=== PATIENT | female | born 2000 | race Caucasian/White ===

== ENCOUNTER 2021-02-25 00:30 | Emergency (ER) | payer BC, OTHER ==
--- OUTSIDE RECORDS SUMMARY | 2021-02-25 01:40 | XMS REPORT | Clinical Summary ---
Author Author [facility] Organization [facility] Address Unknown Phone Unavailable Care Team Providers Care Post Closer Name Role Phone Vickie Bowles MD PCP Allergies No known active allergies Medications End Date Status Medication Sig Dispensed Refills Start Date Active sertraline (ZOLOFT) 100 0 01/23/201 MG tablet 8 Active SPRINTEC, 28, 0.25-35 0 mg-mcg tablet 8 Active Problems Not on file Encounters Not on filefrom Last 3 Months Immunizations Not on file Social History Date Tobacco Use Types Packs/Day Years Used Never Smoker Smokeless Tobacco: Never Used Sex Assigned at Date Recorded Not on file Last Filed Vital Signs Reading Time Taken Comments Vital Sign 100/69 02/22/2018 3:08 PM TAX EXAMINER Blood Pressure 118 02/22/2018 3:08 PM TAX EXAMINER Pulse 39.1 C (102.3 F) 02/22/2018 3:08 PM TAX EXAMINER Temperature 16 02/22/2018 3:08 PM TAX EXAMINER Respiratory Rate 99% 02/22/2018 3:08 PM TAX EXAMINER Oxygen Saturation - - Inhaled Oxygen Concentration 63.5 kg (140 lb) 02/22/2018 3:08 PM TAX EXAMINER Weight 175.3 cm (5' 9") 02/22/2018 3:08 PM TAX EXAMINER Height 20.67 02/22/2018 3:08 PM TAX EXAMINER Body Mass Index 47.99 % 02/22/2018 3:08 PM TAX EXAMINER Body Mass Index Percentile Growth Chart: CDC (Girls, 2-20 Years) Plan of Treatment Not on file Goals Not on file Implants Not on file Procedures Not on filefrom Last 3 Months Results Not on filefrom Last 3 Months Additional Health Concerns Not on file Insurance Type Payer Benefit Subscriber ID Effective Phone Address Plan / Dates Group BCBS AGUSTIN BCBS [id number] 2017-P [facility] [phone] Care Teams Start Date End Date Post Closer Relationship Specialty 02/22/18 Vickie Bowles MD PCP - General Pediatrics [address] [place] [id number]
--- OUTSIDE RECORDS SUMMARY | 2021-02-25 01:40 | XMS REPORT | Clinical Summary ---
Author Author [facility] Organization [facility] Address Unknown Phone Unavailable Care Team Providers Care Mock Up Assembler Name Role Phone Arely Gage MD PCP Source Comments Some departments are not documenting in the electronic medical record. If you d o not see the information that you expected, contact Release of Information in [facility] Information Management department at [phone] for further assistan ce in locating additional records.[facility] Allergies No known active allergies Medications End Date Status Medication Sig Dispensed Refills Start Date Active IBUPROFEN PO Take by 0 mouth. Active levonorgestrel/ethinyl Take 1 tablet 0 estradiol (ROSEY-28, by mouth NORDETTE-28) 0.15 mg/30 daily. mcg tablet Active sertraline (ZOLOFT) 50 mg Take 50 mg by 0 tablet mouth daily. Active Problems Problem Noted Date Rupture of anterior cruciate ligament of left knee 1 Complex tear of medial meniscus of left knee as curre nt injury 01/12/2017 Resolved Problems Problem Noted Date Resolved Date Left knee pain 12/29/2016 01/12/2017 Social History Date Tobacco Use Types Packs/Day Years Used Never Smoker Smokeless Tobacco: Never Used Comments Alcohol Use Standard Drinks/Week No 0 (1 standard drink = 0.6 o z pure alcohol) Sex Assigned at Date Recorded Not on file Growth Chart Information Age Height Weight Tbsysp-[id number] BMI Head Circum Head Circum Date ength Percentile Percentile Percentile 17 years 172.7 cm (5' 66.7 kg (147 68.84 %* 09/28/2017 8") lb) 17 years 172.7 cm (5' 68 kg (150 73.85 %* 06/16/2017 8") lb) 17 years 172.7 cm (5' 70.8 kg (156 80.20 %* 05/18/2017 8") lb) 17 years 172.7 cm (5' 70.8 kg (156 80.37 %* 04/28/2017 8") lb) 16 years 175.3 cm (5' 69.9 kg (154 74.49 %* 03/02/2017 9") lb) 16 years 175.3 cm (5' 70.2 kg (154 75.68 %* 02/02/2017 9") lb 12.8 oz) 16 years 175.3 cm (5' 70.8 kg (156 77.15 %* 01/12/2017 9") lb) 16 years 175.3 cm (5' 72.6 kg (160 80.94 %* 12/26/2016 9") lb) 16 years 172.7 cm (5' 70.8 kg (156 81.55 %* 12/13/2016 8") lb) * [facility] (Girls, 2-20 Years) Last Filed Vital Signs Reading Time Taken Comments Vital Sign 116/61 09/28/2017 1:30 PM CDT Blood Pressure 66 09/28/2017 1:30 PM CDT Pulse - - Temperature 16 09/28/2017 1:30 PM CDT Respiratory Rate 96% 09/28/2017 1:30 PM CDT Oxygen Saturation - - Inhaled Oxygen Concentration 66.7 kg (147 lb) 09/28/2017 1:30 PM CDT Weight 172.7 cm (5' 8") 09/28/2017 1:30 PM CDT Height 22.35 09/28/2017 1:30 PM CDT Body Mass Index 68.84 % 09/28/2017 1:30 PM CDT Body Mass Index Percentile Growth Chart: [facility] (Girls, 2-20 Years) Plan of Treatment Health Maintenance Due Date Last Done Comments CHLAMYDIA SCREENING 18-24 2001 YEARS HPV VACCINES (1 - 2-dose 2012 series) HIV SCREENING 2016 DTAP/TDAP VACCINES (1 - 2019 Tdap) HEPATITIS C SCREENING 2019 PHYSICAL (COMPREHENSIVE) 2019 EXAM INFLUENZA VACCINE 10/25/2020 MENINGOCOCCAL VACCINE Aged Out No longer eligib laurent based on patient's age to (Chichi DIAZ) complete this topic Results Not on filefrom Last 3 Months Insurance Type Payer Benefit Subscriber ID Effective Phone Address Plan / Dates Group PPO BCBS AGUSTIN BCBS AGUSTIN [id number] 2016-P [phone] [address] [facility] [id number] [place] [address] [id number] Advance Directives Patient Brush Cleaner Explanation Type Date Recorded Advance Directive/DPOA Care Teams Start Date End Date Mock Up Assembler Relationship Specialty 12/12/16 Arely Gage MD PCP - General Pediatrics [address] [place] [address]
--- NOTE | 2021-02-25 02:14 | ED Syncope ---
General Stated Complaint: SEIZURE Source of Information: Patient Exam Limitations: No Limitations History of Present Illness Date Seen by Provider: Feb 25, 2021 Time Seen by Provider: 01:29 Initial Comments Patient to the ER by private conveyance with significant other is in chief complaint that she was smoking some cannabis with friends and felt funny, lig htheaded like she might pass out. She stood up and this made her walk a few steps and then passed out fall to the ground. She got up about 20 seconds later. She says she could hear voices but not understand what they were saying. She then took a few more steps after saying she felt okay and passed out a second time again only for a few seconds according to her friends. After she came to she was with it again promptly. No nausea or vomiting. No fevers or chills. No shortness of breath cough. She says she has had the symptoms in the past when she smoked cannabis. No known medical or surgical history. She is on control pills. She is having a little pain in her ribs on the left side of her thoracic vertebra from the second fall. She does not take anything for the pain. Allergies and Home Medications Allergies Coded Allergies: No Known Drug Allergies (Unverified , 02/25/21) Patient Home Medication List Home Medication List Reviewed: Yes Review of Systems Constitutional: No chills, No diaphoresis EENTM: No hearing loss, No ear pain Respiratory: No cough, No short of breath Cardiovascular: No chest pain, No palpitations Gastrointestinal: No abdominal pain, No nausea Genitourinary: No decreased output, No discharge Musculoskeletal: No back pain, No joint pain All Other Systems Reviewed Negative Unless Noted: Yes Past Lufxifj-Vvuweg-Xiyamw Hx Patient Social History Tobacco Use?: No Use of E-Cig and/or Vaping dev: No Substance use?: Yes Substance type: Marijuana Alcohol Use?: No Physical Exam Vital Signs Vital Signs - First Documented 02/25/21 01:45 Temp 36.6 Pulse 107 Resp 16 B/P (MAP) 143/94 (110) O2 Delivery Room Air Capillary Refill : Height, Weight, BMI Height: '" Weight: lbs. oz. kg; BMI Method: General Appearance: No Apparent Distress, WD/WN HEENT: PERRL/EOMI, Pharynx Normal, Moist Mucous Membranes Neck: Full Range of Motion, Normal Inspection Cardiovascular: Regular Rate, Rhythm, No Edema, Normal Peripheral Pulses Respiratory: Lungs Clear, Normal Breath Sounds, No Accessory Muscle Use, No Respiratory Distress Gastrointestinal: Normal Bowel Sounds, No Pulsatile Mass, Non Tender, Soft Extremities: Normal Capillary Refill, Normal Inspection, No Pedal Edema Neurologic/Psychiatric: Alert, Oriented x3 Cranial Nerves: Normal Hearing, Normal Speech, PERRL Motor/Sensory: No Motor Deficit, No Sensory Deficit, No Pronator Drift, Negative Babinski's Sign Skin: Normal Color, Warm/Dry Progress/Results/Core Measures Results/Orders Lab Results Laboratory Tests Test 02/25/21 02:10 02/25/21 02:18 Range/Units White Blood Count 8.8 4.3-11.0 10^3/uL Red Blood Count 4.23 3.80-5.11 10^6/uL Hemoglobin 12.6 11.5-16.0 g/dL Hematocrit 39 35-52 % Mean Corpuscular Volume 92 80-99 fL Mean Corpuscular Hemoglobin 30 25-34 pg Mean Corpuscular Hemoglobin Concent 33 32-36 g/dL Red Cell Distribution Width 11.7 10.0-14.5 % Platelet Count 199 130-400 10^3/uL Mean Platelet Volume 12.2 9.0-12.2 fL Immature Granulocyte % (Auto) 0 % Neutrophils (%) (Auto) 64 42-75 % Lymphocytes (%) (Auto) 27 12-44 % Monocytes (%) (Auto) 8 0-12 % Eosinophils (%) (Auto) 1 0-10 % Basophils (%) (Auto) 0 0-10 % Neutrophils # (Auto) 5.6 1.8-7.8 10^3/uL Lymphocytes # (Auto) 2.4 1.0-4.0 10^3/uL Monocytes # (Auto) 0.7 0.0-1.0 10^3/uL Eosinophils # (Auto) 0.1 0.0-0.3 10^3/uL Basophils # (Auto) 0.0 0.0-0.1 10^3/uL Immature Granulocyte # (Auto) 0.0 0.0-0.1 10^3/uL Sodium Level 140 135-145 MMOL/L Potassium Level 3.4 L 3.6-5.0 MMOL/L Chloride Level 104 98-107 MMOL/L Carbon Dioxide Level 21 21-32 MMOL/L Anion Gap 15 H 5-14 MMOL/L Blood Urea Nitrogen 12 7-18 MG/DL Creatinine 0.82 0.60-1.30 MG/DL Estimat Glomerular Filtration Rate 90 BUN/Creatinine Ratio 15 Glucose Level 104 70-105 MG/DL Calcium Level 9.7 8.5-10.1 MG/DL Corrected Calcium 9.3 8.5-10.1 MG/DL Total Bilirubin 0.3 0.1-1.0 MG/DL Aspartate Amino Transf (AST/SGOT) 30 5-34 U/L Alanine Aminotransferase (ALT/SGPT) 22 0-55 U/L Alkaline Phosphatase 46 40-136 U/L C-Reactive Protein High Sensitivity 0.24 0.00-0.50 MG/DL Total Protein 7.9 6.4-8.2 GM/DL Albumin 4.5 3.2-4.5 GM/DL Urine Color YELLOW Urine Clarity CLEAR Urine pH 6.5 5-9 Urine Specific [place] 1.025 H 1.016-1.022 Urine Protein NEGATIVE NEGATIVE Urine Glucose (UA) NEGATIVE NEGATIVE Urine Ketones NEGATIVE NEGATIVE Urine Nitrite NEGATIVE NEGATIVE Urine Bilirubin NEGATIVE NEGATIVE Urine Urobilinogen 0.2 < = 1.0 MG/DL Urine Leukocyte Esterase NEGATIVE NEGATIVE Urine RBC (Auto) NEGATIVE NEGATIVE Urine RBC NONE /HPF Urine WBC 0-2 /HPF Urine Squamous Epithelial Cells 0-2 /HPF Urine Crystals NONE /LPF Urine Bacteria FEW H /HPF Urine Casts PRESENT /LPF Urine Hyaline Casts 0-2 H /LPF Urine Mucus NEGATIVE /LPF Urine Culture Indicated NO My Orders Orders - GIOVANNA CROWDER Urine Bedside (02/25/21 01:51) Ekg Tracing (02/25/21 01:51) Continuous Ekg Monitoring (02/25/21 01:51) Cbc With Automated Diff (02/25/21 01:51) Comprehensive Metabolic Panel (02/25/21 01:51) Hs C Reactive Protein (02/25/21 01:51) Ua Culture If Indicated (02/25/21 01:57) Orthostatic Vital Signs (12-19 (02/25/21 01:58) Vital Signs/I&O 02/25/21 02/25/21 01:45 02:14 Temp 36.6 Pulse 107 96 94 114 Resp 16 B/P (MAP) 143/94 (110) 133/63 131/83 139/87 O2 Delivery Room Air Progress Progress Note #1: Time: 02:16 Progress Note OrthO's, EKG, labs to rule out anemias infections or other electrolyte disorders. Vasovagal syncope most likely. Progress Note #2: Time: 03:19 Progress Note Orthostatics are barely positive with heart rate jumping up by 20 from sitting to standing. We will encourage her to take on more oral fluids. We provided her with a glass of ice water. Initial ECG Impression Date: Feb 25, 2021 Initial ECG Impression Time: 01:59 Initial ECG Rate: 91 Initial ECG Rhythm: Normal Sinus Initial ECG Intervals: Normal Initial ECG Impression: Normal Initial ECG Comparisson: No Previous ECG Available Comment Normal sinus rhythm without clinically relevant ST elevation or depression. Departure Impression Primary Impression: Orthostatic syncope Additional Impression: Vasovagal syncope Disposition: 01 HOME, SELF-CARE Condition: Stable Departure-Patient Inst. Decision time for Depature: 03:19 Referrals: NO,LOCAL PHYSICIAN (PCP/Family) Primary Care Physician Patient Instructions: Vasovagal Response (DC), Orthostatic Hypotension Add. Discharge Instructions: You are a little dehydrated and that combined with the other stimuli probably led you to have your syncopal, passing out episode tonight. Go home drink a big glass of water and get some sleep. Increase your fluid intake over the next couple days. Work/School Note: School/Childcare Release Date Seen in the Emergency Department: Feb 25, 2021 Time Dismissed from Emergency Department: 03:21 Return to School: Feb 26, 2021 Restrictions: No Restrictions GIOVANNA CROWDER Feb 25, 2021 02:14
[2021-02-25 02:24] LABS: BASOPHILS % (AUTO) 0 % (0-10); EOSINOPHILS # (AUTO) 0.1 10^3/uL (0.0-0.3); EOSINOPHILS % (AUTO) 1 % (0-10); HEMATOCRIT 39 % (35-52); HEMOGLOBIN 12.6 g/dL (11.5-16.0); LYMPHOCYTES # (AUTO) 2.4 10^3/uL (1.0-4.0); LYMPHOCYTES % (AUTO) 27 % (12-44); MEAN CORPUSCULAR HEMOGLOBIN 30 pg (25-34); MEAN CORPUSCULAR HGB CONC 33 g/dL (32-36); MEAN CORPUSCULAR VOLUME 92 fL (80-99); MEAN PLATELET VOLUME 12.2 fL (9.0-12.2); MONOCYTES # (AUTO) 0.7 10^3/uL (0.0-1.0); MONOCYTES % (AUTO) 8 % (0-12); NEUTROPHILS # (AUTO) 5.6 10^3/uL (1.8-7.8); NEUTROPHILS % (AUTO) 64 % (42-75); PLATELET COUNT 199 10^3/uL (130-400); WHITE BLOOD COUNT 8.8 10^3/uL (4.3-11.0)
[2021-02-25 02:27] LABS: BILIRUBIN,URINE NEGATIVE (NEGATIVE); CLARITY,URINE CLEAR; COLOR,URINE YELLOW; GLUCOSE, URINE (UA) NEGATIVE (NEGATIVE); KETONES,URINE NEGATIVE (NEGATIVE); LEUKOCYTE ESTERASE ,URINE NEGATIVE (NEGATIVE); NITRITE,URINE NEGATIVE (NEGATIVE); PH,URINE 6.5 (5-9); PROTEIN,URINE NEGATIVE (NEGATIVE)
[2021-02-25 02:35] LABS: BACTERIA,URINE FEW /HPF; SQUAMOUS EPITHELIAL CELL,UR 0-2 /HPF; WBC,URINE 0-2 /HPF
[2021-02-25 02:36] LABS: HYALINE CASTS, URINE 0-2 /LPF
[2021-02-25 02:46] LABS: ALBUMIN 4.5 GM/DL (3.2-4.5); POTASSIUM 3.4 MMOL/L (3.6-5.0)
[2021-02-25 02:47] LABS: CALCIUM 9.7 MG/DL (8.5-10.1)
[2021-02-25 02:49] LABS: TOTAL PROTEIN 7.9 GM/DL (6.4-8.2)
[2021-02-25 02:50] LABS: BILIRUBIN,TOTAL 0.3 MG/DL (0.1-1.0)
[2021-02-25 02:53] LABS: CREATININE SERUM 0.82 MG/DL (0.60-1.30)
[2021-02-25 03:31] VITALS: BP 119/80
== END 2021-02-25 03:31 | disposition home or self-care (01) ==
LOC: ER 00:35
DX: R55 Syncope and collapse (principal)
CPT/HCPCS: 36415; 80053; 81000; 84703; 85025; 86141; 93005